=== PATIENT | female | born 1960 | race African-American/Black ===

== ENCOUNTER 2016-07-23 01:16 | Emergency (ER) | payer MEDICAID, OTHER ==
[~2016-07-23] VITALS: Ht 172.7 cm; Wt 70.3 kg
[2016-07-23] MEDS ORDERED: CYCL5TAB PO (01:39)
[2016-07-23] MEDS ORDERED: IBUP-1780 PO (01:39)
[2016-07-23] MEDS ORDERED: HYDROcodone/APAP 5 MG/325 MG (LORTAB) TAB PO ONE (02:15)
[2016-07-23] MEDS ORDERED: KETOROLAC 60 MG/2 ML VIAL IM ONE (02:15)
[2016-07-23] MEDS ORDERED: ORPHENADRINE 60 MG/2 ML (NORFLEX) AMP IM ONE (02:15)
[2016-07-23] MEDS ORDERED: PRD20T PO (03:19)
[2016-07-23] MEDS ORDERED: TRAM-42 PO (03:19)
--- NOTE | 2016-07-23 03:19 | ED Back Pain ---
General Chief Complaint: Lower Extremity Stated Complaint: RT SIDE LEG NUMB,HURTS,CAN'T SLEEP Nursing Triage Note: C/O RIGHT KNEE PAIN S/P FALL 06/18/12/27. REPORTS INTERMITTANT LOWER BACK PAIN. SEEN AT CL[facility]. Nursing Sepsis Screen: No Definite Risk Source of Information: Patient, Family Exam Limitations: No Limitations History of Present Illness Time Seen by Provider: 01:31 Initial Comments This 56-year-old woman presents to the emergency room with lower back pain radiating into the right leg and associated with right leg numbness since June 18. She has been taking ibuprofen and a muscle relaxer without benefit. She has a history of diabetes and has not been taking her insulin for months. Dr. Reid has been her primary care provider but she is considering transferring records elsewhere. She has been seen in the outpatient setting but has not had relief from muscle relaxers and NSAIDs. She reports plain x- rays have been performed. She denies bowel or bladder dysfunction. Allergies and Home Medications Allergies Coded Allergies: No Known Drug Allergies (Unverified , 07/23/16) Home Medications Cyclobenzaprine HCl 5 Mg Tablet #30 1 TAB PO UD (Reported) Ibuprofen 800 Mg Tablet #90 1 TAB PO UD (Reported) Prednisone 20 Mg Tab #4 20 MG PO DAILY Prescribed by: ANANDA GARCIA on 07/23/16318 Tramadol HCl 50 Mg Tablet #20 50 MG PO Q6H PRN PRN PAIN Prescribed by: ANANDA GARCIA on 07/23/16318 Constitutional: no symptoms reported EENTM: no symptoms reported Respiratory: no symptoms reported Cardiovascular: no symptoms reported Gastrointestinal: no symptoms reported Genitourinary: no symptoms reported : No Musculoskeletal: see HPI Skin: no symptoms reported Psychiatric/Neurological: See HPI Past Yiyecrq-Rqlzho-Mjcodx Hx Patient Social History Alcohol Use: Denies Use Recreational Drug Use: No Smoking Status: Current Everyday Smoker Type Used: Cigarettes Recent Foreign Travel: No Contact w/Someone Who Travel: No Recent Infectious Disease Expo: No Recent Hopitalizations: No Physical Abuse Screen: No Sexual Abuse: No Seasonal Allergies Seasonal Allergies: No Surgeries HX Surgeries: Yes Surgeries: Orthopedic Respiratory Hx Respiratory Disorders: Yes (tobaccoism) Cardiovascular Hx Cardiac Disorders: Yes Cardiac Disorders: Hypertension Neurological Hx Neurological Disorders: No Reproductive System : No Hx Reproductive Disorders: No MANAGER MASS History: Menopausal Genitourinary Hx Genitourinary Disorders: No Gastrointestinal Hx Gastrointestinal Disorders: No Musculoskeletal Hx Musculoskeletal Disorders: Yes Musculoskeletal Disorders: Arthritis Endocrine Hx Endocrine Disorders: Yes Endocrine Disorders: Diabetes, Insulin dep HEENT HX ENT Disorders: No Cancer Hx Cancer: No Psychosocial Hx Psychiatric Problems: No Integumentary HX Skin/Integumentary Disorder: No Blood Transfusions Hx Blood Disorders: No Adverse Reaction to a Blood Tr: No Physical Exam Vital Signs Vital Sign - Last 12Hours 07/23/16 01:39 Temp 97.4 Pulse 95 Resp 18 B/P 126/73 Pulse Ox 100 O2 Delivery Room Air Capillary Refill : Less Than 3 Seconds General Appearance: WD/WN Mild Distress HEENT: PERRL/EOMI Normal ENT Inspection Cardiovascular: Regular Rate, Rhythm No Edema No Murmur Respiratory: Lungs Clear Normal Breath Sounds No Accessory Muscle Use No Respiratory Distress Back: Normal Inspection Vertebral Tenderness (the lumbar spine and bilateral SI joints) Extremity: Normal Inspection No Pedal Edema Neurologic/Psychiatric: Alert Oriented x3 No Motor/Sensory Deficits Normal Mood/Affect human resource adviser II-XII Norm as Tested Abnormal Cerebellar Tests Skin: Normal Color Warm/Dry Progress/Results/Core Measures Results/Orders Lab Results Laboratory Tests Test 07/23/16 01:50 Range/Units Glucometer 108 70-110 MG/DL My Orders Orders-ANANDA MCINTOSH MD Accucheck Stat ONCE (07/23/16 01:41) Ketorolac Injection (Toradol Injection) (07/23/16 02:15) Orphenadrine Injection (Norflex Injectio (07/23/16 02:15) Hydrocodone/Apap 5/325 Tablet (Lortab 5 (07/23/16 02:15) Medications Given in ED Current Medications Medications Dose Ordered Sig/Evonne Route Start Time Stop Time Status Last Admin Dose Admin Acetaminophen/ Hydrocodone Bitart 1 tab ONCE ONCE PO 07/23/16 02:15 07/23/16 02:16 DC 07/23/16 02:20 1 TAB Ketorolac Tromethamine 60 mg ONCE ONCE IM 07/23/16 02:15 07/23/16 02:16 DC 07/23/16 02:20 60 MG Orphenadrine Citrate 60 mg ONCE ONCE IM 07/23/16 02:15 07/23/16 02:16 DC 07/23/16 02:19 60 MG Vital Signs/I&O Vital Sign - Last 12Hours 07/23/16 07/23/16 01:39 03:24 Temp 97.4 98.7 Pulse 95 87 Resp 18 18 B/P 126/73 Pulse Ox 100 98 O2 Delivery Room Air Room Air Blood Pressure Mean: 90 Point of Care Testing Finger Stick Blood Glucose: 108 Blood Glucose Action Taken: NOTIFIED Progress Note : Progress Note Patient received Toradol, Norflex, and hydrocodone with improvement in symptoms. Departure Impression Impression: Primary Impression: Lower back pain Qualified Code: M54.41 - Lumbago with sciatica, right side Additional Impression: Lumbar radiculopathy Disposition: HOME, SELF-CARE Condition: Improved Departure-Patient Inst. Decision time for Depature: 03:00 Referrals: REMBERTO REID MD (PCP) Primary Care Physician Patient Instructions: Radiculopathy Add. Discharge Instructions: You may continue using ibuprofen, naproxen, or Aleve. Take with food or milk to avoid irritation on your stomach. For pain not controlled by vluk-smc-fbslmah medicines, you may take Ultram ( tramadol) as prescribed. Use prednisone as prescribed. Monitor your blood sugars closely while on prednisone and discontinue if blood sugars exceed 250. Follow-up with your primary care provider soon as possible. Discussed the possibility of pursuing imaging of your lower back such as MRI. Return to care if symptoms worsen. All discharge instructions reviewed with patient and/or family. Voiced understanding. Scripts Tramadol HCl (Ultram)50 Mg Fznxvd10 Mg PO Q6H PRN PAIN #20 TAB Prov:ANANDA MCINTOSH MD 07/23/16 Prednisone 20 Mg Tab20 Mg PO DAILY #4 TAB Prov:ANANDA MCINTOSH MD 07/23/16 Copy Copies To 1: REMBERTO REID MD, JOSHUA T MD Jul 23, 2016 03:19
[2016-07-23 03:24] VITALS: BP 159/88
== END 2016-07-23 03:24 | disposition home or self-care (01) ==
LOC: ER 01:23
DX: M54.16 Radiculopathy, lumbar region (principal); E11.9 Type 2 diabetes mellitus without complications; I10 Essential (primary) hypertension; F17.210 Nicotine dependence, cigarettes, uncomplicated; Z91.14 Patient's other noncompliance with medication regimen
CPT/HCPCS: 82962; 96372; 99283

== ENCOUNTER 2019-07-05 16:14 | Emergency (ER) | payer MEDICAID ==
[~2019-07-05] VITALS: Ht 152.4 cm; Wt 65.9 kg
[~2019-07-05 16:14] MED LIST: CYCL5TAB PO; IBUP-1780 PO; PRD20T PO; TRAM-42 PO
--- NOTE | 2019-07-05 16:36 | ED Upper Extremity ---
General Chief Complaint: Upper Extremity Stated Complaint: FALL RIGHT SHOULDER/ARM PAIN Source: patient Exam Limitations: no limitations History of Present Illness Date Seen by Provider: Jul 05, 2019 Time Seen by Provider: 16:25 Initial Comments Patient was standing on the porch at the friend's house and was talking and laughing and she tripped and fell on her right shoulder 2 nights ago. Since then patient was having worsening pain on her right shoulder and right forearm and finally she decided to come to the emergency room today. She denies hitting her head and denies having any headache, neck pain, chest pain, abdominal pain or any pain in the lower extremities. Onset: other (2 days ago) Severity: moderate Pain/Injury Location: right shoulder, right forearm Method of Injury: fell Modifying Factors: Improves With Immobilization Allergies and Home Medications Allergies Coded Allergies: No Known Drug Allergies (Unverified , 07/23/16) Home Medications Cyclobenzaprine HCl 5 Mg Tablet, 1 TAB PO UD, (Reported) Ibuprofen 800 Mg Tablet, 1 TAB PO UD, (Reported) Prednisone 20 Mg Tab, 20 MG PO DAILY Prescribed by: ANANDA GARCIA on 07/23/16318 Tramadol HCl 50 Mg Tablet, 50 MG PO Q6H PRN for PAIN Prescribed by: ANANDA GARCIA on 07/23/16318 Review of Systems Constitutional: see HPI EENTM: no symptoms reported Respiratory: no symptoms reported Cardiovascular: no symptoms reported Gastrointestinal: no symptoms reported Genitourinary: no symptoms reported Musculoskeletal: see HPI; No back pain Skin: no symptoms reported Psychiatric/Neurological: No Symptoms Reported Past Ekcxbmm-Kejkgy-Zydusv Hx Patient Social History Type Used: Cigarettes Recent Foreign Travel: No Contact w/Someone Who Travel: No Recent Hopitalizations: No Seasonal Allergies Seasonal Allergies: No Past Medical History Orthopedic Hypertension Reproductive Disorders: No SENIOR HEALTH CONSULTANT History: Menopausal Arthritis Diabetes, Insulin dep Adverse Reaction/Blood Tranf: No Physical Exam Vital Signs Vital Signs - First Documented 07/05/19 16:20 Temp 36.4 Pulse 97 Resp 16 B/P (MAP) 187/157 (167) Pulse Ox 97 O2 Delivery Room Air Capillary Refill : Height, Weight, BMI Height: 5'8" Weight: 155lbs. oz. 70.364985sr; BMI Method:Stated General Appearance: moderate distress HEENT: PERRL/EOMI, normal ENT inspection Neck: non-tender Cardiovascular: normal peripheral pulses, regular rate, rhythm Respiratory: chest non-tender, lungs clear, normal breath sounds Gastrointestinal: normal bowel sounds, non tender, soft, no organomegaly Back: normal inspection Shoulder: pain, soft tissue tenderness Elbow/Forearm: normal inspection, Right, soft tissue tenderness Wrist: Yes normal inspection, Yes non-tender, Yes no evidence of injury, Yes normal ROM Hand: normal inspection, non-tender, no evidence of injury, normal ROM 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, no motor/sensory deficits, alert, normal mood/affect, oriented x 3 Skin: normal color Progress/Results/Core Measures Results/Orders My Orders Orders - DEBBIE DURHAM MD Shoulder 2 View Right (07/05/19 16:28) Forearm 2 View Right (07/05/19 16:28) Fentanyl Injection (Sublimaze Injection (07/05/19 17:00) Fentanyl Injection (Sublimaze Injection (07/05/19 16:47) Vital Signs/I&O 07/05/19 07/05/19 16:20 16:59 Temp 36.4 Pulse 97 Resp 16 B/P (MAP) 187/157 (167) 168/101 (123) Pulse Ox 97 O2 Delivery Room Air Consults : Consulting Physician: DON LANG MD Consults Notes Advised to put the patient on the shoulder sling and call office on to be seen next week and the pain medications. Departure Impression Primary Impression: Humeral surgical neck fracture Qualified Codes: S42.221A - 2-part displaced fracture of surgical neck of right humerus, initial encounter for closed fracture Disposition: 01 HOME, SELF-CARE Condition: Stable Departure-Patient Inst. Decision time for Depature: 17:06 Referrals: DON LANG MD FOR RT HUMERAL NECK FRACTURE Patient Instructions: How to Use a Shoulder Sling, Shoulder Fracture (DC) Add. Discharge Instructions: Follow-up with Dr. Lang orthopedic doctor at the [facility]. Call office on to get an appointment for next week. Keep the shoulder sling until seen by orthopedic doctor. Rest, ice and elevation. Take pain medications as needed. Return to the emergency room if has any concerns. All discharge instructions reviewed with patient and/or family. Voiced understanding. Scripts Hydrocodone/Acetaminophen (Acton 5-325 Tablet) 1 Each Tablet 1 TAB PO Q4H for Pain MDD 10 TABS for 7 Days, #20 TAB Prov: DEBBIE DURHAM MD 07/05/19 DEBBIE DURHAM MD Jul 05, 2019 16:36
[2019-07-05] MEDS ORDERED: fentaNYL INJECTION 100 MCG/2 ML AMP ONE (16:47)
--- NOTE | 2019-07-05 16:54 | Diagnostic Imaging Report ---
INDICATION: Right arm pain status post recent fall. COMPARISON: Right shoulder exam from same day. FINDINGS: Multiple radiographic views of the right forearm were obtained show no evidence of acute fracture or dislocation. Osseous structures are intact. Joint spaces are maintained. No unexpected radiopaque foreign bodies are seen. IMPRESSION: 1. No evidence acute fracture or dislocation of the right forearm. Dictated by: Dictated on workstation # [id number]
[2019-07-05 16:59] VITALS: BP 168/101
[2019-07-05] MEDS ORDERED: fentaNYL INJECTION 100 MCG/2 ML AMP IM ONE (17:00)
--- NOTE | 2019-07-05 17:00 | Diagnostic Imaging Report ---
INDICATION: Fall, pain. COMPARISON: None available. TECHNIQUE: Two radiographs of the right shoulder dated July 05, 2019. FINDINGS: Recent right humeral neck fracture is present. Fracture plane is predominantly transversely oriented. There is minimal medial displacement. Mild degenerative changes of the acromioclavicular joint. No glenohumeral joint dislocation. Subacromial space is well maintained. The visualized right lung is clear. IMPRESSION: Acute mildly displaced right humeral neck fracture. Mild degenerative changes. Dictated by: Dictated on workstation # [id number]
[2019-07-05] MEDS ORDERED: HYDR-4226 PO (17:08)
[2019-07-05 17:15] VITALS: BP 168/101
== END 2019-07-05 17:17 | disposition home or self-care (01) ==
LOC: EDUNIT# 16:14 → ER FS 16:16
DX: S42.211A Unspecified displaced fracture of surgical neck of right humerus, initial encounter for closed fracture (principal); I10 Essential (primary) hypertension; Z79.52 Long term (current) use of systemic steroids; W01.0XXA Fall on same level from slipping, tripping and stumbling without subsequent striking against object, initial encounter; Y92.019 Unspecified place in single-family (private) house as the place of occurrence of the external cause
CPT/HCPCS: 73030; 73090; 96372

== ENCOUNTER → 2019-07-26 | Outpatient (CLI) | payer MEDICAID ==
[~2019-07-26] MED LIST changes: +HYDR-4226 PO
--- NOTE | 2019-07-26 09:15 | Diagnostic Imaging Report ---
INDICATION: Right humerus neck fracture, follow-up. Time of exam: 9:00 a.m. Comparison is made with prior radiograph from 07/05/2019. Glenohumeral and acromioclavicular alignment remain within normal limits. The fracture of the proximal humerus is again noted. Fracture lines remain clearly visible. No significant callus formation is seen. Alignment is stable. IMPRESSION: No significant change in the comminuted proximal humerus fracture when compared to examination from 07/05/2019. Dictated by: Dictated on workstation # [id number]
== END ==
LOC: RAD FS 08:57
PROVIDERS: ATTEND Nurse Practitioner Family
DX: S42.291D Other displaced fracture of upper end of right humerus, subsequent encounter for fracture with routine healing (principal); X58.XXXD Exposure to other specified factors, subsequent encounter
CPT/HCPCS: 73030

== ENCOUNTER → 2019-07-26 | Outpatient (CLI) | payer MEDICAID ==
--- NOTE | 2019-07-26 10:30 | Diagnostic Imaging Report ---
INDICATION: Right humerus fracture. TIME OF EXAMINATION: 10:06 AM. COMPARISON: Correlation is made with the prior radiographs from earlier this same day. FINDINGS: The comminuted slightly impacted proximal right humerus fracture is again noted. The fracture lines remain clearly visible. No significant displacement is seen. The glenohumeral alignment is normal. IMPRESSION: Proximal humerus fracture. Dictated by: Dictated on workstation # [id number]
== END ==
LOC: RAD FS 10:04
PROVIDERS: ATTEND Nurse Practitioner
DX: S42.222A 2-part displaced fracture of surgical neck of left humerus, initial encounter for closed fracture (principal); X58.XXXA Exposure to other specified factors, initial encounter
CPT/HCPCS: 73020

== ENCOUNTER → 2019-08-09 | Outpatient (CLI) | payer MEDICAID ==
--- NOTE | 2019-08-09 18:08 | Diagnostic Imaging Report ---
INDICATION: Fracture. COMPARISON: 07/26/2019. FINDINGS: Comminuted fracture of the humeral neck and head is in stable alignment. No dislocation. There has been some new bone formation and early partial healing. AC joint is nonacute. IMPRESSION: Some new bone formation about the healing proximal humeral fracture is in stable alignment without dislocation. Dictated by: Dictated on workstation # [id number]
== END ==
LOC: RAD FS 14:08
PROVIDERS: ATTEND Nurse Practitioner
DX: S42.221A 2-part displaced fracture of surgical neck of right humerus, initial encounter for closed fracture (principal); X58.XXXA Exposure to other specified factors, initial encounter
CPT/HCPCS: 73030

== ENCOUNTER → 2019-08-23 | Outpatient (CLI) | payer MEDICAID ==
--- NOTE | 2019-08-23 09:44 | Diagnostic Imaging Report ---
INDICATION: Shoulder fracture. Three views were obtained. FINDINGS: There is stable alignment of the comminuted fracture involving the right humeral head and neck. There is no other fracture or dislocation. Right lung is clear. IMPRESSION: Stable alignment of the proximal humeral fracture as described. Dictated by: Dictated on workstation # [id number]
== END ==
LOC: RAD FS 09:11
PROVIDERS: ATTEND Nurse Practitioner
DX: S42.222D 2-part displaced fracture of surgical neck of left humerus, subsequent encounter for fracture with routine healing (principal); W17.89XD Other fall from one level to another, subsequent encounter
CPT/HCPCS: 73030

== ENCOUNTER 2019-09-12 17:22 | Emergency (ER) | payer MEDICAID ==
[2019-09-12] MEDS ORDERED: NOREPINEPHRINE 4 MG in D5W IV SOLUTION (EXCEL) 250 ML IV ONE (17:24)
[2019-09-12] MEDS ORDERED: MAGNESIUM 1 GM/100 ML IVPB 100 ML IV ONE (17:24)
[2019-09-12] MEDS ORDERED: LIDOCAINE BOLUS 100 MG/5 ML (IMS) SYR IV ONE (17:24)
[2019-09-12] MEDS ORDERED: SODIUM BICARB 4.2% 5 MEQ/10 ML (INFANT) SYR IV ONE (17:24)
[2019-09-12] MEDS ORDERED: CALCIUM CHLORIDE 1 GM/10 ML (IMS) SYR IV ONE (17:24)
[2019-09-12] MEDS ORDERED: ASPIRIN 81 MG CHEW (CHILDREN'S ASA) ONE (18:04)
[2019-09-12] MEDS ORDERED: HEParin 1000 UNIT/ML (10ML VIAL) FOR BOLUS ONE (18:04)
[2019-09-12 18:20] LABS: CARBON DIOXIDE 15 MMOL/L (21-32); CHLORIDE 102 MMOL/L (98-107); POTASSIUM 3.5 MMOL/L (3.6-5.0); SODIUM 139 MMOL/L (135-145)
[2019-09-12 18:21] LABS: ALANINE AMINOTRANSFERASE 155 U/L (0-55); ALBUMIN 3.3 GM/DL (3.2-4.5); ALKALINE PHOSPHATASE 119 U/L (40-136); BILIRUBIN,TOTAL 0.2 MG/DL (0.1-1.0); BUN/CREATININE RATIO 15; CALCIUM 8.7 MG/DL (8.5-10.1); CREATININE SERUM 0.75 MG/DL (0.60-1.30); GFR ESTIMATED > 60; GLUCOSE 349 MG/DL (70-105); TOTAL PROTEIN 7.8 GM/DL (6.4-8.2)
[2019-09-12 18:22] LABS: WHITE BLOOD COUNT 6.5 10^3/uL (4.3-11.0)
[2019-09-12 18:23] LABS: BASOPHILS % (AUTO) 1 % (0-10); EOSINOPHILS % (AUTO) 0 % (0-10); HEMATOCRIT 49 % (35-52); HEMOGLOBIN 15.4 G/DL (11.5-16.0); LYMPHOCYTES % (AUTO) 55 % (12-44); MEAN CORPUSCULAR HEMOGLOBIN 30 PG (25-34); MEAN CORPUSCULAR HGB CONC 32 G/DL (32-36); MEAN CORPUSCULAR VOLUME 94 FL (80-99); MEAN PLATELET VOLUME 8.9 FL (7.4-10.4); MONOCYTES % (AUTO) 6 % (0-12); PLATELET COUNT 291 10^3/uL (130-400)
[2019-09-12 18:24] LABS: NEUTROPHILS % (AUTO) 38 % (42-75)
[2019-09-12 18:25] LABS: NEUTROPHILS # (AUTO) 2.5 X 10^3 (1.8-7.8)
[2019-09-12 18:26] LABS: BASOPHILS # (AUTO) 0.1 10^3/uL (0.0-0.1); LYMPHOCYTES # (AUTO) 3.6 X 10^3 (1.0-4.0); MONOCYTES # (AUTO) 0.4 X 10^3 (0.0-1.0)
--- NOTE | 2019-09-12 18:33 | ED Chest Pain ---
General Chief Complaint: Code Blue Source: family Exam Limitations: clinical condition History of Present Illness Date Seen by Provider: Sep 12, 2019 Time Seen by Provider: 17:30 Initial Comments Patient was brought in by ambulance after a collapse at home she had an AED shocked CPR intubated lidocaine epi and was transported to the emergency room. Further history was obtained later from the family which included a smoker alcohol peripheral vascular disease diabetes family history of coronary disease family relates that she has had chest pain all day today was sweating so profusely that she had to undress this evening she was noted to have collapsed and was not breathing and 911 was summoned and emergency care was rendered. Timing/Duration: 1 day Allergies and Home Medications Allergies Coded Allergies: No Known Drug Allergies (Unverified , 07/23/16) Home Medications Cyclobenzaprine HCl 5 Mg Tablet, 1 TAB PO UD, (Reported) Hydrocodone/Acetaminophen 1 Each Tablet, 1 TAB PO Q4H Prescribed by: DEBBIE DURHAM on 07/05/19 170 Ibuprofen 800 Mg Tablet, 1 TAB PO UD, (Reported) Prednisone 20 Mg Tab, 20 MG PO DAILY Prescribed by: ANANDA GARCIA on 07/23/16318 Tramadol HCl 50 Mg Tablet, 50 MG PO Q6H PRN for PAIN Prescribed by: ANANDA GARCIA on 07/23/16318 Patient Home Medication List Home Medication List Reviewed: Yes Review of Systems Review of Systems Constitutional: no symptoms reported EENTM: No Symptoms Reported Respiratory: No Symptoms Reported Cardiovascular: No Symptoms Reported Gastrointestinal: No Symptoms Reported Genitourinary: No Symptoms Reported Musculoskeletal: no symptoms reported Skin: no symptoms reported Psychiatric/Neurological: No Symptoms Reported Endocrine: No Symptoms Reported Other Comments Review of systems unable to be obtained due the patient's CPR status Past Fjznowf-Hpjqkk-Krvzyp Hx Past Med/Social Hx: Reviewed Nursing Past Med/Soc Hx Patient Social History Type Used: Cigarettes 2nd Hand Smoke Exposure: No Recent Hopitalizations: No Seasonal Allergies Seasonal Allergies: No Past Medical History Surgeries: Yes Orthopedic Respiratory: Yes (tobaccoism) Cardiac: Yes Hypertension Neurological: No Reproductive Disorders: No SALES PROMOTION DIRECTOR History: Menopausal Genitourinary: No Gastrointestinal: No Musculoskeletal: Yes Arthritis Endocrine: Yes Diabetes, Insulin dep HEENT: No Cancer: No Psychosocial: No Integumentary: No Blood Disorders: No Adverse Reaction/Blood Tranf: No Physical Exam Vital Signs Vital Signs - First Documented 09/12/19 17:22 Temp 35.5 Pulse 155 Resp 16 B/P (MAP) 65/48 (54) Pulse Ox 98 O2 Delivery Ambu Bag Capillary Refill : Height, Weight, BMI Height: 5'8" Weight: 155lbs. oz. 70.719165bl; 28.00 BMI Method:Stated General Appearance: Other (patient was intubated flaccid CPR in progress) Respiratory: Lungs Clear (per sounds were present with the endotracheal tube in position with good chest rise) Cardiovascular: Regular Rate, Rhythm (rate was tachycardic with distant heart sounds emergent echo showed good apical movement with poor anterior right ventricular movement no right ventricular dilation and a tachycardic rhythm), No Edema Gastrointestinal: Normal Bowel Sounds, No Pulsatile Mass Extremity: Normal Inspection Neurologic/Psychiatric: Other (she was obtunded and intubated) Critical Care Note Critical Care Start Time: 17:30 Stop Time: 18:30 Total Time (minutes) Total care includes multiple drug management rhythm management defibrillation ventilator adjustments blood gas analysis x-ray review multiple consults with Dr. Voss at [facility] who referred me to [facility] discussed the case with Dr. Singer there who recommended immediate transfer by air to the ER multiple EKGs family updates frequent and regular bedside reevaluation's the patient to control the drips Date of : Sep 12, 2019 Progress/Results/Core Measures Results/Orders Lab Results Laboratory Tests Test 09/12/19 17:35 09/12/19 17:40 Range/Units White Blood Count 6.5 4.3-11.0 10^3/uL Red Blood Count 5.20 4.35-5.85 10^6/uL Hemoglobin 15.4 11.5-16.0 G/DL Hematocrit 49 35-52 % Mean Corpuscular Volume 94 80-99 FL Mean Corpuscular Hemoglobin 30 25-34 PG Mean Corpuscular Hemoglobin Concent 32 32-36 G/DL Red Cell Distribution Width 13.0 10.0-14.5 % Platelet Count 291 130-400 10^3/uL Mean Platelet Volume 8.9 7.4-10.4 FL Neutrophils (%) (Auto) 38 L 42-75 % Lymphocytes (%) (Auto) 55 H 12-44 % Monocytes (%) (Auto) 6 0-12 % Eosinophils (%) (Auto) 0 0-10 % Basophils (%) (Auto) 1 0-10 % Neutrophils # (Auto) 2.5 1.8-7.8 X 10^3 Lymphocytes # (Auto) 3.6 1.0-4.0 X 10^3 Monocytes # (Auto) 0.4 0.0-1.0 X 10^3 Eosinophils # (Auto) 0.0 0.0-0.3 10^3/uL Basophils # (Auto) 0.1 0.0-0.1 10^3/uL Neutrophils % (Manual) 34 % Lymphocytes % (Manual) 51 % Monocytes % (Manual) 4 % Eosinophils % (Manual) 0 % Basophils % (Manual) 0 % Metamyelocytes % 2 % Myelocytes % 2 % Band Neutrophils 7 % Nucleated Red Blood Cells 1 Blood Morphology Comment NORMAL Sodium Level 139 135-145 MMOL/L Potassium Level 3.5 L 3.6-5.0 MMOL/L Chloride Level 102 98-107 MMOL/L Carbon Dioxide Level 15 L 21-32 MMOL/L Anion Gap 22 H 5-14 MMOL/L Blood Urea Nitrogen 11 7-18 MG/DL Creatinine 0.75 0.60-1.30 MG/DL Estimat Glomerular Filtration Rate > 60 BUN/Creatinine Ratio 15 Glucose Level 349 H 70-105 MG/DL Calcium Level 8.7 8.5-10.1 MG/DL Corrected Calcium 9.3 8.5-10.1 MG/DL Total Bilirubin 0.2 0.1-1.0 MG/DL Aspartate Amino Transf (AST/SGOT) 220 H 5-34 U/L Alanine Aminotransferase (ALT/SGPT) 155 H 0-55 U/L Alkaline Phosphatase 119 40-136 U/L Troponin I 0.37 *H <0.30 NG/ML Total Protein 7.8 6.4-8.2 GM/DL Albumin 3.3 3.2-4.5 GM/DL Blood Gas Puncture Site RIGHT RADIAL Blood Gas Patient Temperature 35.5 Arterial Blood pH 6.98 *L 7.37-7.43 Arterial Blood Partial Pressure CO2 48 H 35-45 MMHG Arterial Blood Partial Pressure O2 99 H 79-93 MMHG Arterial Blood HCO3 11 *L 23-27 MMOL/L Arterial Blood Total CO2 12.8 L 21.0-31.0 MMOL/L Arterial Blood Oxygen Saturation 93 L 94-100 % Arterial Blood Base Excess -20.0 L -2.5-2.5 MMOL/L Chao Test Blood Gas Ventilator Setting NO Blood Gas Inspired Oxygen CPR BAG My Orders Orders - MINDY FIGUEROA DO Aspirin Chewable Tablet (Baby Aspirin Ch (09/12/19 18:04) Heparin (Bolus Per Protocol) (Heparin (B (09/12/19 18:04) Chest 1 View Ap/Pa Only (09/12/19 18:14) Cbc And Manual Diff (09/12/19 18:14) Comprehensive Metabolic Panel (09/12/19 18:14) Troponin I Fs (09/12/19 18:14) Ekg Tracing (09/12/19 18:14) Catheter(Urinary) Insert & Ass 03,15 (09/12/19 19:11) Ekg Tracing (09/12/19 19:11) Ekg Tracing (09/12/19 19:11) Aspirin Chewable Tablet (Baby Aspirin Ch (09/12/19 19:15) Heparin (Bolus Per Protocol) (Heparin (B (09/12/19 19:15) Arterial Blood Gas (09/12/19 19:14) Medications Given in ED Current Medications Medications Dose Ordered Sig/Evonne Route Start Time Stop Time Status Last Admin Dose Admin Aspirin 324 mg ONCE ONCE PO 09/12/19 19:15 09/12/19 19:17 DC 09/12/19 18:06 324 MG Vital Signs/I&O 09/12/19 09/12/19 17:22 19:00 Temp 35.5 35.5 Pulse 155 99 Resp 16 16 B/P (MAP) 65/48 (54) 161/91 Pulse Ox 98 100 O2 Delivery Ambu Bag Mechanical Ventilator Initial ECG Impression Date: Sep 12, 2019 Initial ECG Rate: 160 Initial ECG Rhythm: S.Tach, A Fib/Flutter (was a wide complex tachycardia with P waves present more consistent with atrial flutter than vt) EKG : Rhythm: Normal Sinus Comment Taken EKG shows after defibrillation after multiple medications and the blood pressure management shows sinus rhythm with evidence of an acute inferior wall AR Departure Impression Primary Impression: Cardiac arrest Additional Impression: Acute ST elevation myocardial infarction Disposition: XFER SHT-TRM HOSP Condition: Critical Transfer Transfer Reason: Exceeds level of care Time Spoke to Accepting Phy: 18:20 Transfer Progress Notes I spoke the emergency physician at [facility] who accepted the patient after discussing it with Dr. Infante, to the ER critical conditions I did check electrolytes he requested prior to transfer which shows elevated blood sugar LFT abnormalities but the potassium was 5 Patient was leaving our facility to go to [facility] because of coronary artery bypass capabilities not available at [facility] discussion with the work order clerk electronic tech at [facility] Transfer Time: 18:34 Transfer Facility: [facility] Method of Transfer: Air Departure-Patient Inst. Referrals: [facility] (PCP) Primary Care Physician ALON PETERSON APRN (Family) Primary Care Physician MINDY FIGUEROA DO Sep 12, 2019 18:33
[2019-09-12 18:39] LABS: BAND NEUTROPHILS 7 %; NEUTROPHILS % (MANUAL) 34 %
[2019-09-12 18:40] LABS: BASOPHILS % (MANUAL) 0 %; EOSINOPHILS % (MANUAL) 0 %; LYMPHOCYTES % (MANUAL) 51 %; METAMYELOCYTES % 2 %; MONOCYTES % (MANUAL) 4 %; MYELOCYTES % 2 %; NUCLEATED RED BLOOD CELLS 1; RBC MORPH NORMAL
--- NOTE | 2019-09-12 18:50 | Diagnostic Imaging Report ---
CHEST 1 VIEW AP/PA ONLY Indication: Intubation Comparison: None available. Findings: Enteric tube has tip approximately 3 cm above the lesa. Enteric tube has sidehole near the GE junction and tip in the proximal stomach. Ill-defined central opacities are present within the lungs. No pleural effusion or pneumothorax. No displaced rib fractures. Partially imaged right proximal humeral fracture. Impression: 1. Well-positioned ETT and enteric tubes. 2. Central vascular opacities could represent mild pulmonary edema and/or atelectasis. Dictated by: Dictated on workstation # [id number]
[2019-09-12 19:00] VITALS: BP 161/91
--- NOTE | 2019-09-12 19:00 | NUR ---
1722- Patient arrived via EMS CPR in progress, intubation prior to arrival, IO in place, and defibrillated x1 on scene, dose of epinephrine and lidocaine prior to arrival 1722 - Defibrillated 360J 1724 - Compression resumed 1725- EKG at this time, HR 168, RR 11 1728 - BP 107/35 1728 - 100mg Lidocaine administered 173 -Vitals BP 65/48, HR 109, RR 11 1733 - 20g Left AC, labs drawn, Central pulses present 173- Magnesium 2 grams administered 173 - Levophed 0.05mcg/kg/min initiated 173- 1 Amp bicarb administered, compression resumed 173 - Vitals HR 123, O2 96%, 35 co2, 155/97, EKG 1740- Compressions stopped 174 - BP 67/33 174 - 1g calcium chloride administered 174 - BP 58/34, HR 124, O2 96%, 1749 - Manual BP 60/40, 1amp Bicarb administered, Levophed increased to 0.1mcg/kg/min 1750 - BP 87/64 right leg, HR 194, 91% 1753- Morris catheter placed, 20g RAC 1752- levophed increased to 0.2mcg/kg/min 1757 - BP 63/50 1758 - Levophed increased to 0.4mcg/kg/min 1759 - BP 69/36 1803 - Defibrillated 360J 1803 - EKG, HR 70 180- Levophed decreased to 0.2mcg/kg/min 1809 - BP 146/88 1811- 5000 units heparin administered 181- 325mg aspirin administered per NG tube 183 - [facility] arrived and assumed patient care.
[2019-09-12] MEDS ORDERED: HEParin 1000 UNIT/ML (10ML VIAL) FOR BOLUS IV SCH (19:15)
[2019-09-12] MEDS ORDERED: ASPIRIN 81 MG CHEW (CHILDREN'S ASA) PO ONE (19:15)
[2019-09-12 19:31] LABS: ABG OXYGEN SATURATION 93 % (94-100); ABG PCO2 48 MMHG (35-45); ABG PH 6.98 (7.37-7.43); ABG PO2 99 MMHG (79-93); ABG TCO2 12.8 MMOL/L (21.0-31.0)
[2019-09-12 19:32] LABS: INSPIRED O2 CPR BAG; PATIENT TEMP 35.5; VENTILATOR NO
== END 2019-09-12 19:00 | disposition short-term general hospital (02) ==
LOC: EDUNIT# 17:22 → ER FS 17:23
DX: I46.9 Cardiac arrest, cause unspecified (principal); I21.3 ST elevation (STEMI) myocardial infarction of unspecified site; E11.9 Type 2 diabetes mellitus without complications; F17.210 Nicotine dependence, cigarettes, uncomplicated; Z79.52 Long term (current) use of systemic steroids
CPT/HCPCS: 36415; 36680; 51702; 71045; 80053; 82805; 84484; 85007; 85027; 93005; 96374; 96375